=== PATIENT | male | born 1935 | race Caucasian/White ===

== ENCOUNTER 2019-06-20 10:29 | Outpatient (CLI) | payer OTHER | END 2019-06-20 14:49 | disposition home or self-care (01) | LOC: MRI 10:29 → EDBD 10:29 → MRI 14:49 | DX: G91.2 (Idiopathic) normal pressure hydrocephalus (principal); M54.2 Cervicalgia; R55 Syncope and collapse | CPT/HCPCS: 70551; 72141 ==